=== PATIENT | male | born 1985 | race Caucasian/White ===

== ENCOUNTER 2018-10-04 05:37 | Emergency (ER) | payer SELFPAY ==
[~2018-10-04] VITALS: Ht 175.3 cm; Wt 100.0 kg
[2018-10-04 07:21] VITALS: BP 132/82
== END 2018-10-04 07:21 | disposition home or self-care (01) ==
LOC: ED 05:37
DX: S91.311A Laceration without foreign body, right foot, initial encounter (principal); W22.8XXA Striking against or struck by other objects, initial encounter; Y93.89 Activity, other specified; Y92.89 Other specified places as the place of occurrence of the external cause; Y99.8 Other external cause status
CPT/HCPCS: J2001